=== PATIENT | male | born 1975 | race Caucasian/White ===

== ENCOUNTER 2024-07-17 12:37 | Inpatient (IN) | payer MEDICARE, BC, MEDICAID, SELFPAY ==
[2024-07-17] VITALS (8 sets, daily range): BP systolic 114–134; BP diastolic 57–71; PULSE 83–108; RESP 18–26; TEMP 36.3–39.1; O2SAT 88–98; BMI 39.9
--- NOTE | ~2024-07-17 | XR_ITS ---
EXAMINATION: XR CHEST CLINICAL INFORMATION: cough COMPARISON: None available. TECHNIQUE: 2 views of the chest were obtained. Mild rotation to the left. FINDINGS: Pleural-based opacities along the peripheral hemithoraces extending toward the apices likely related to pleural thickening versus effusions. No dominant consolidations appreciated. There is mild increased prominence of pulmonary vascularity with some peribronchial thickening observed. In addition there are interstitial perpendicular lines noted toward the right base. Findings suggestive of underlying mild pulmonary vascular congestion with possible small interstitial edema. XR/XR chest 2V IMPRESSION: Radiographic findings suspicious for underlying mild pulmonary vascular congestion with possible small interstitial edema peripherally projecting toward the right base. Pleural thickening versus effusions projecting at the lateral pleural surfaces and the apices. Electronically signed by: Fili Hdez MD 07/17/2024 01:57 PM [facility]
--- NOTE | 2024-07-17 12:50 | ED.GENADULT ---
HPI - General Adult General Chief complaint: Dyspnea Stated complaint: diff breathing cough Time Seen by Provider: 07/17/24 13:24 Source: patient and family Mode of arrival: ambulatory Limitations: no limitations History of Present Illness ED Provider: MELISSA POMPA narrative: 49 yo male with PMH of Down syndrome, hearing loss, no prior issues with lungs goes to a day program and on Sunday came home with cough, fevers, not feeling well. Today he felt hot and then also had N/V first episode of this after eating breakfast. He has not traveled. No known sick contacts. He has never smoked. He was at urgent care to get checked out and they noted he was 87% on RA, referred to the ED. Patient was given tylenol this AM by dad. Per family he has never had any cardiac disease or repair in his life. The only surgery he had was knee surgery. MD complaint: URI symptoms, dyspnea Onset (ago): day(s) (starting this past month) Location: chest Radiation: non-radiation Severity: moderate Relieving factors: rest Exacerbating factors: other (exertion) Associated symptoms: cough, loss of appetite, malaise, shortness of breath and weakness Treatments prior to arrival: other (tylenol) Related Data Allergies Allergy/AdvReac Type Severity Reaction Status Date / Time No Known Allergies Allergy Unverified 07/17/24 12:52 [No Known Allergies*] Review of Systems Review of Systems: Constitutional : pos Fever, pos Chills ENT/Mouth : No Hoarseness, No sore throat, No Rhinorrhea Eyes: No Redness, No Discharge, No Vision Changes Cardiovascular : No Chest Pain, positive SOB, positive Dyspnea on Exertion, No Edema Respiratory : positive Cough, pos Sputum, positive Wheezing, Gastrointestinal : No Nausea, No Vomiting, No Diarrhea, No abdominal Pain Genitourinary : No Dysuria, No Hematuria Musculoskeletal : No joint pain, No Myalgias Skin : No rash Neuro : No Weakness, No Numbness, No Headache Psych : No anxiety, depression All other systems reviewed and are negative [facility] Past Medical History Attestation statement: The following information was validated with the patient. Source: obtained from family Medical History Down syndrome Social History Social History (Updated 07/17/24 @ 13:48 by Sherlyn Gregg DO) Patient Tobacco Use Status: Never used Tobacco Advance Directives: No Advance Directives Information Provided: Yes Physical Exam ED Vital Signs: Vital Signs - 24 hr 07/17/24 12:50 07/17/24 13:34 07/17/24 13:34 Temperature 102.3 F H Pulse Rate 103 H 107 H Respiratory Rate 18 26 H Blood Pressure 114/71 Pulse Oximetry 90 L 88 L 94 Oxygen Delivery Method Room Air Room Air Nasal Cannula Oxygen Flow Rate 2 07/17/24 13:41 07/17/24 13:49 07/17/24 13:56 Temperature Pulse Rate 108 H 108 H 105 H Respiratory Rate 21 H 20 24 H Blood Pressure 134/66 Pulse Oximetry 92 Oxygen Delivery Method Nasal Cannula Oxygen Flow Rate 2 BMI result Body Mass Index 39.9 Appearance: Alert. Oriented X3. slighty labored mild acute distress. Eyes: Pupils equal, round and reactive to light. ENT: Pharynx normal. Neck: Normal inspection. Neck supple. CVS: tachycardic heart rate and rhythm. Pulses normal. Respiratory: Mild respiratory distress tachypnea Breath sounds coarse with diminished lung sounds RLL Abdomen: Soft and nontender. Skin: Skin warm and dry. Normal skin color. Normal skin turgor. Extremities: No lower extremity edema. No calf ttp Neuro: Oriented X 3. No motor deficit. No sensory deficit. Course Course Course Narrative: RME, this is a rapid medical exam performed by Dave Healy please refer to primary provider for complete H&P- 49-year-old male presents for evaluation of cough, vomiting, headache. He presents with his mother. He does have a history of developmental disability, he presents from urgent care. He was reportedly hypoxic to 87% on room air at urgent care. In triage was oxygen saturation is 91-92% plan for labs, chest x-ray, viral swabs. Patient medicated with Zofran ODT in triage. Patient noted to be febrile in triage, he received acetaminophen from family about an hour prior to arrival. Medications Administered Discontinued Medications Generic Name Dose Route Start Last Admin Trade Name Freq PRN Reason Stop Dose Admin Acetaminophen 975 mg 07/17/24 13:28 07/17/24 13:46 Acetaminophen 325 Mg Tablet PO 07/17/24 13:29 Not Given ONCE ONE Albuterol Sulfate 2.5 mg 07/17/24 13:50 07/17/24 13:55 Albuterol Sulfate (0.083%) 2.5 Mg/3 Ml Vial.Neb INHALE 07/17/24 13:51 2.5 mg ONCE ONE Administration Ceftriaxone Sodium 1 gm 07/17/24 13:24 07/17/24 13:43 Ceftriaxone Sodium 1 Gm Vial IVPUSH 07/17/24 13:25 1 gm ONCE ONE Administration Albuterol Sulfate 5 mg/ 0 mg 07/17/24 13:40 07/17/24 13:44 Albuterol/Ipratropium 3 ml INHALE 07/17/24 13:41 7.5 each ONCE ONE Administration Lactated Ringer's 1,000 mls @ 999 mls/hr 07/17/24 13:28 07/17/24 13:42 Lr IV 07/17/24 14:28 999 mls/hr .Q1H1M ONE Administration Ibuprofen 600 mg 07/17/24 13:46 07/17/24 13:53 Ibuprofen 600 Mg Tablet PO 07/17/24 13:47 600 mg ONCE ONE Administration Methylprednisolone Sodium Succinate 60 mg 07/17/24 13:24 07/17/24 13:42 Methylprednisolone Sod Succ 125 Mg/2 Ml Vial IVPUSH 07/17/24 13:25 60 mg ONCE ONE Administration Ondansetron HCl 4 mg 07/17/24 12:50 07/17/24 13:42 Ondansetron Odt 4 Mg Tab.Rapdis TRANSLINGU 07/17/24 12:51 4 mg ONCE ONE Administration Ondansetron HCl 4 mg 07/17/24 13:46 07/17/24 13:52 Ondansetron Odt 4 Mg Tab.Rapdis TRANSLINGU 07/17/24 13:47 Not Given ONCE ONE Ondansetron HCl 4 mg 07/17/24 13:52 07/17/24 13:53 Ondansetron Hcl 4 Mg/2 Ml Vial IVPUSH 07/17/24 13:53 4 mg ONCE ONE Administration Medical Decision Making Medical Decision Making MDM Narrative: 49 yo male with Down syndrome, hearing loss, here with c/o URI symptoms now with n/v today x 1, increased work of breathing and hypoxia on arrival. He has had a fever at this time suspect viral syndrome vs pneumonia. O2 2L NC ordered, labs, cultures, bronch protocol, IV steroids for wheezing noted, empiric ceftriaxone. Given O2 demands planned admit Differential Diagnosis Differential Diagnoses: The differential diagnosis associated with the presentation includes URI, pneumonia, hypoxia Admission/Observation Consideration of admission/observation: Escalation of care including admission/observation considered given hypoxia will admit 88-89% on RA Consult Healthcare Provider Management of the patient was discussed with: Hospitalist (will admit) Lab Data MDM Lab Attestation statement: I reviewed the patient's lab results. 07/17/24 13:41 07/17/24 13:41 Labs: Lab Results 07/17/24 07/17/24 Range/Units 13:41 13:42 WBC 11.5 H (4.8-10.8) X10*3/uL RBC 4.27 L (4.60-5.80) X10*6/uL Hgb 13.9 L (14.0-18.0) g/dl Hct 41.4 L (42.0-52.0) % MCV 97.0 (80.0-98.0) fL MCH 32.6 (27.0-33.0) pg MCHC 33.6 (31.0-36.0) g/dl RDW 14.4 (11.0-16.0) % Plt Count 250 (160-400) X10*3/uL MPV 10.7 (9.4-12.4) fL Immature Gran % (Auto) 0.3 (0.0-0.4) % Neut % (Auto) 85.0 H (45-73) % Lymph % (Auto) 7.4 L (20-40) % [place] % (Auto) 6.8 (2-11) % Eos % (Auto) 0.2 (0-4) % Baso % (Auto) 0.3 (0-2) % Lymph # (Auto) 0.9 L (1.2-4.9) X10*3/uL [place] # (Auto) 0.8 (0.1-1.2) X10*3/uL Eos # (Auto) 0.0 (0.0-0.4) X10*3/uL Baso # (Auto) 0.0 (0.0-0.2) X10*3/uL Abs Immat Gran (auto) 0.04 H (0.00-0.03) X10*3/uL Absolute Neuts (auto) 9.7 H (2.0-8.3) x10*3/uL Absolute Nucleated RBC 0.000 (0.0-0.012) X10*3/uL Nucleated RBC % (auto) 0.0 (0.0-0.2) /100WBC Sodium 139 (135-145) mmol/L Potassium 4.3 (3.3-5.1) mmol/L Chloride 105 (96-108) mmol/L Carbon Dioxide 27 (22-29) mmol/L Anion Gap 11 L (12-20) BUN 11 (9-16) mg/dL Creatinine 0.91 (0.5-1.4) mg/dL Estim Creat Clear Calc 95.1 Estimated GFR > 60 Random Glucose 193 H (60-115) mg/dL Lactic Acid 2.3 H* (0.5-2.0) mmol/L Calcium 9.0 (8.4-10.2) mg/dL Total Bilirubin 0.4 (0.0-1.0) mg/dL AST 32 (5-37) U/L ALT 48 H (0-40) U/L Alkaline Phosphatase 98 (39-117) U/L Troponin I High Sens < 2.7 (<3.5-35.0) ng/L Total Protein 7.4 (6.5-8.0) g/dL Albumin 3.6 (3.5-5.0) g/dL Lipase 7 L (8-78) U/L Influenza Type A (PCR) NEGATIVE (Negative) Influenza Type B (PCR) NEGATIVE (Negative) RSV RNA Qual (PCR) POSITIVE A (Negative) SARS-CoV-2 RNA (RT-PCR) NEGATIVE (Negative) S. pyogenes GrpA FAWAD Negative (Negative) Independent Interpretation I performed an independent interpretation of an: EKG and Plain X-Ray (RLL opacity) Interpretation: Rate: 106 Rhythm: sinus tach [place]: normal Normal P waves. Normal ABHISHEK. Normal QRS complex. ST T wave : normal no EVARISTO qTC: 441 prior studies: no acute ischemia The study has been interpreted contemporaneously by me. . Radiology Impression Discussion of test interpretation with radiology: I have reviewed the radiologist's reading. Independent Historian Clinical information obtained from an independent historian. History obtained from or confirmed by: Parent External Record Review External record reviewed: Outpatient record Critical Care Time Critical Care Time Critical Care Time: Yes Total Critical Care Time: 35 Attestation: hypoxia correction, discussions, admission, family discussion I attest to this time spent taking care of the patient Discharge Plan Discharge Clinical Impression: Hypoxia Pneumonia Qualifiers: Pneumonia type: due to unspecified organism Laterality: right Lung location: lower lobe of lung Qualified Code(s): J18.9 - Pneumonia, unspecified organism Fever Qualifiers: Fever type: unspecified Qualified Code(s): R50.9 - Fever, unspecified RSV infection Qualifiers: RSV infection type: unspecified Qualified Code(s): B33.8 - Other specified viral diseases Patient Disposition: Admitted As Inpatient Print Language: Syriac
[2024-07-17] MEDS: Ondansetron ODT 4 MG TAB.RAPDIS TRANSLINGU (13:42)
[2024-07-17] MEDS: Lactated Ringers 1,000 ML 999 ML IV (13:42)
[2024-07-17] MEDS: methylPREDNISolone Sod Succ 125 MG/2 ML VIAL 60 MG IVPUSH (13:42)
[2024-07-17] MEDS: cefTRIAXone sodium 1 GM VIAL IVPUSH (13:43)
[2024-07-17] MEDS: Albuterol Sulfate 5 MG, Albuterol/Iprat 2.5/0.5MG 3 ML 3 ML INHALE (13:44)
[2024-07-17 13:52] LABS: MANUAL DIFF FLAG NO
[2024-07-17] MEDS: Ibuprofen 600 MG TABLET PO (13:53)
[2024-07-17] MEDS: ondansetron HCL 4 MG/2 ML VIAL IVPUSH (13:53)
[2024-07-17] MEDS: Albuterol Sulfate (0.083%) 2.5 MG/3 ML VIAL.NEB INHALE (13:55)
--- NOTE | 2024-07-17 13:58 | ECG_ITS ---
Test Reason : DSYPNEA Blood Pressure : / mmHG Vent. Rate : 106 BPM Atrial Rate : 106 BPM P-R Int : 144 ms QRS Dur : 080 ms QT Int : 332 ms P-R-T Axes : 038 046 027 degrees QTc Int : 441 ms Sinus tachycardia Otherwise normal ECG No previous ECGs available Referred By: Sherlyn Gregg Electronically Signed By:NITO NELSON MD
[2024-07-17 14:02] LABS: Basophils Percent Auto 0.3 % (0-2); Eosinophils Percent Auto 0.2 % (0-4); Hematocrit 41.4 % (42.0-52.0); Hemoglobin 13.9 g/dl (14.0-18.0); Imm Gran Abs Auto 0.04 X10*3/uL (0.00-0.03); Imm Gran Pct Auto 0.3 % (0.0-0.4); Lymphocytes Absolute Auto 0.9 X10*3/uL (1.2-4.9); Lymphocytes Percent Auto 7.4 % (20-40); Mean Corpuscular HGB Conc 33.6 g/dl (31.0-36.0); Mean Corpuscular Hemoglobin 32.6 pg (27.0-33.0); Mean Platelet Volume 10.7 fL (9.4-12.4); Monocytes Absolute Auto 0.8 X10*3/uL (0.1-1.2); Monocytes Percent Auto 6.8 % (2-11); Neutrophils Absolute Auto 9.7 x10*3/uL (2.0-8.3); Platelet Count 250 X10*3/uL (160-400); Red Blood Count 4.27 X10*6/uL (4.60-5.80); Red Cell Distribution Width 14.4 % (11.0-16.0); White Blood Count 11.5 X10*3/uL (4.8-10.8)
[2024-07-17 14:09] LABS: Alanine Aminotransferase 48 U/L (0-40); Albumin Level 3.6 g/dL (3.5-5.0); Alkaline Phosphatase 98 U/L (39-117); Anion Gap 11 (12-20); Aspartate Amino Transferase 32 U/L (5-37); Bilirubin Total 0.4 mg/dL (0.0-1.0); Blood Urea Nitrogen 11 mg/dL (9-16); Carbon Dioxide 27 mmol/L (22-29); Chloride 105 mmol/L (96-108); Creatinine Clr Calc Pharmacy 95.1; Estimated Glomerular Filt Rate > 60; Glucose Random 193 mg/dL (60-115); Lipase 7 U/L (8-78); Potassium 4.3 mmol/L (3.3-5.1); Sodium 139 mmol/L (135-145); Total Protein 7.4 g/dL (6.5-8.0)
[2024-07-17 14:10] LABS: Lactic Acid 2.3 mmol/L (0.5-2.0)
[2024-07-17 14:13] LABS: IDNOW Serial# 58CA691E; Strep A Nucleic Acid Negative (Negative)
--- NOTE | 2024-07-17 14:13 | PC.NURSE ---
pt presents to the ED w/ parents after recently seen at urgent care. chief complaint of shortness of breath, cough, nausea, vomiting, fevers, chills. pt seen at urgent care and referred to ED when they noticed that he was 87% on RA. upon ED arrival - pt noted to be tachycardic on the pvc monitor - denies chest pain/palpitations. pt also noted to be 88% on RA - pt placed on 2L via NC w/ good effect - SPO2 @ 93%. sob/wob noted. pt positioned upright to promote patent airway. pt febrile - father administered Tylenol @ home. ibuprofen administered per provider order. effectiveness pending. 18gIV placed in the left AC - labs obtained/sent to lab. ekg performed by tech. pt received breathing tx via RT. medications/IVF administered per provider order. effectiveness pending. pt seen by ED provider. pt/family notified/aware of pt's status in regards to being admitted. plan of care ongoing. call matias placed within reach.
[2024-07-17 14:14] LABS: Troponin-I High Sensitivity < 2.7 ng/L (<3.5-35.0)
[2024-07-17 14:29] LABS: Influenza A PCR NEGATIVE (Negative); Influenza B PCR NEGATIVE (Negative); Resp Syncy Virus RNA Qual PCR POSITIVE (Negative); SARS COV2 PCR INHOUSE NEGATIVE (Negative)
[2024-07-17] MEDS: Azithromycin 500 MG in 0.9 % Sodium Chloride 250 ML 125 MG IV (14:45)
--- NOTE | 2024-07-17 15:08 | PM.IMHP ---
History of Present Illness Date of Service: 07/17/24 Chief Complaint: fever, cough The patient is a 49-year-old male with, hearing loss, hypothyroidism, hyperlipidemia and others who presents to the emergency room after being referred from urgent care for hypoxia on room air down to 87%. The patient's mother and father at bedside and history is obtained through their help. It appears that since Sunday of this week, 3 days prior to admission, he has been feeling unwell with fevers. There is also reports of productive cough and shortness of breath. He was taken to the urgent care today where he was noted to be hypoxic and has referred to the emergency room. In the ED, the patient was tachycardic tachypneic and febrile. His workup is positive for RSV. His chest x-ray is being read pulmonary vascular congestion as well as small interstitial edema projecting towards the right base. Clinically appears to be more an infiltrate, consistent with pneumonia. He has been treated with updrafts, IV Solu-Medrol, IV fluids, IV antibiotics, IV Zofran. He remained hypoxic below 90%, was placed on 2 L at admission has been requested. Review of Systems Review of Systems: Negative except HPI/interval history. [facility] Medical History Down syndrome Social History (Updated 07/17/24 @ 13:48 by Sherlyn Gregg DO) Household Members: Other Household Members Other:: pt has own room Housing Other:: shelter Do you presently have visiting nurse or other home services: No ([facility]) Patient Tobacco Use Status: Never used Tobacco Use of substances other than those prescribed or required for medical reasons: No Currently Displaying Signs/Symptoms of Drug Intoxication Withdrawal: No Have you been hit, kicked, punched, or otherwise hurt by someone within the past year? If so, by whom?: No Do you feel safe in your current relationship?: No Current Relationship Is there a partner from a previous relationship who is making you feel unsafe now?: No Are you made to feel afraid or neglected: No Advance Directives: No Advance Directives Information Provided: Yes Do you have a plan to hurt others: No Plan Recently lost weight without trying: No How much weight loss: 2-13 pounds Eating poorly because of decreased appetite: No Nutrition screen score: 1 Nutrition Risks: No Nutritional Risk Meds Allergies Allergy/AdvReac Type Severity Reaction Status Date / Time No Known Allergies Allergy Unverified 07/17/24 12:52 [No Known Allergies*] Active Medications: Current Medications Acetaminophen (Acetaminophen 325 Mg Tablet) 650 mg PO Q6H PRN PRN Reason: Pain, Mild 1-3,fever,headache Calcium Carbonate (Calcium Carbonate 750 Mg Tab.Chew) 750 mg PO Q4H PRN PRN Reason: Heartburn Ceftriaxone Sodium (Ceftriaxone Sodium 1 Gm Vial) 1 gm IVPUSH Q24H PASTOR Enoxaparin Sodium (Enoxaparin Sodium 40 Mg/0.4 Ml Syringe) 40 mg SUBCUT Q24H [facility] Azithromycin 500 mg/ Sodium (Chloride) 250 mls @ 125 mls/hr IV ONCE ONE Stop: 07/17/24 16:31 Last Admin: 07/17/24 14:45 Dose: 125 mls/hr Lactated Ringer's (Lr) 1,000 mls @ 100 mls/hr IVCONT .Q10H PASTOR Stop: 07/18/24 10:59 Azithromycin 500 mg/ Sodium (Chloride) 250 mls @ 125 mls/hr IV Q24H [facility] Magnesium Hydroxide (Milk Of Magnesia 30 Ml Oral.Susp) 30 ml PO DAILY PRN PRN Reason: Constipation Melatonin (Melatonin 3 Mg Tablet) 6 mg PO BEDTIME PRN PRN Reason: Insomnia Ondansetron HCl (Ondansetron Hcl 4 Mg/2 Ml Vial) 4 mg IVPUSH Q8H PRN PRN Reason: Nausea and Vomiting Sodium Chloride (0.9 % Sodium Chloride Flush 3 Ml Syringe) 3 ml IVFLUSH QSHIFT [facility] Home Medications ?Medication ?Instructions ?Recorded ?Confirmed ?Last Taken ?Type cyanocobalamin (vitamin B-12) 1,000 mcg PO DAILY 07/17/24 07/17/24 Unknown History 1,000 mcg tablet diclofenac sodium 1 % topical gel 2 g topical QID 07/17/24 07/17/24 Unknown History famotidine 20 mg tablet 20 mg PO BID@0700,1600 07/17/24 07/17/24 Unknown History fluticasone propionate 50 2 spray intranasal DAILY 07/17/24 07/17/24 Unknown History mcg/actuation nasal spray,suspension asfjziwkych-[id number]-ycy C-Mn 500 1 cap PO TID 07/17/24 07/17/24 Unknown History mg-400 mg capsule (Glucosamine Chondroitin Maximum Strength) levothyroxine 175 mcg tablet 175 mcg PO DAILY@0600 07/17/24 07/17/24 Unknown History olopatadine 0.1 % eye drops 1 drp ophthalmic (eye) DAILY 07/17/24 07/17/24 Unknown History pediatric multivit no. 58-ferrous 1 tab PO DAILY 07/17/24 07/17/24 Unknown History fumarate 18 mg iron chewable tablet (Child Complete Multivitamin) peg 400-propylene glycol (PF) 0.4 1 drp ophthalmic (eye) QID 07/17/24 07/17/24 Unknown History %-0.3 % eye drops in a dropperette (Systane (PF)) pravastatin 20 mg tablet 20 mg PO BEDTIME 07/17/24 07/17/24 Unknown History trazodone 100 mg tablet 100 mg PO BEDTIME 07/17/24 07/17/24 Unknown History venlafaxine 150 mg 300 mg PO DAILY 07/17/24 07/17/24 Unknown History capsule,extended release 24 hr Physical Exam Vital Signs and Narrative: Vital Signs: Last Vital Signs Temp 99.9 F 07/17/24 14:43 Pulse 104 H 07/17/24 14:43 Resp 18 07/17/24 14:43 BP 120/57 L 07/17/24 14:43 Pulse Ox 94 07/17/24 14:43 O2 Del Method Nasal Cannula 07/17/24 14:43 O2 Flow Rate 2 07/17/24 14:43 BMI result Body Mass Index 39.9 Const: Other: Constitutional - Awake and Alert, No apparent distress Eyes - PERRLA, EOMI Cardiovascular - S1S2, RRR, No edema Respiratory - coarse sounds globally, saturating low-mid 90s on 2L Gastrointestinal - NT / ND; +BS; No rebound or guarding - No CVA tenderness Extremities - no calf tenderness bilaterally, no swelling Musculoskeletal - Normal inspection, normal ROM Skin - Warm/Dry Neurological - awake and alert, no focal motor deficits Psychological - Appropriate affect Results Labs 07/17/24 13:41 07/17/24 13:41 Labs: Laboratory Results - last 24 hr 07/17/24 07/17/24 13:41 13:42 MCV 97.0 MCH 32.6 MCHC 33.6 RDW 14.4 Plt Count 250 MPV 10.7 Immature Gran % (Auto) 0.3 Neut % (Auto) 85.0 H Lymph % (Auto) 7.4 L [place] % (Auto) 6.8 Eos % (Auto) 0.2 Baso % (Auto) 0.3 Lymph # (Auto) 0.9 L [place] # (Auto) 0.8 Eos # (Auto) 0.0 Baso # (Auto) 0.0 Abs Immat Gran (auto) 0.04 H Absolute Neuts (auto) 9.7 H Absolute Nucleated RBC 0.000 Nucleated RBC % (auto) 0.0 Anion Gap 11 L Estim Creat Clear Calc 95.1 Estimated GFR > 60 Random Glucose 193 H Lactic Acid 2.3 H* Calcium 9.0 Total Bilirubin 0.4 AST 32 ALT 48 H Alkaline Phosphatase 98 Troponin I High Sens < 2.7 Total Protein 7.4 Albumin 3.6 Lipase 7 L Influenza Type A (PCR) NEGATIVE Influenza Type B (PCR) NEGATIVE RSV RNA Qual (PCR) POSITIVE A SARS-CoV-2 RNA (RT-PCR) NEGATIVE S. pyogenes GrpA FAWAD Negative Imaging Radiologist's Impressions: Impressions Chest X-Ray 07/17/24 13:25 IMPRESSION: Radiographic findings suspicious for underlying mild pulmonary vascular congestion with possible small interstitial edema peripherally projecting toward the right base. Pleural thickening versus effusions projecting at the lateral pleural surfaces and the apices. Electronically signed by: Fili Hdez MD 07/17/2024 01:57 PM [facility] Assessment and Plan (1) RSV infection: Qualifiers: RSV infection type: unspecified Qualified Code(s): B33.8 - Other specified viral diseases Status: Acute (2) Hypoxia: Status: Acute Plan 49 yo M with Down syndrome presenting with fevers, cough and found to have hypoxia. Imaging consistent with pneumonia. RSV positive. He will be admitted for further care. 1. Severe Sepsis and acute respiratory failure with hypoxia due to suspected bacterial pneumonia plus RSV Meets sepsis criteria with tachycardia, tachypnea, fevers. Severe features include elevated lactate. Sepsis focused exam completed We will treat with IV ceftriaxone and azithromycin Follow cultures Supportive care for his RSV Continue with supplemental oxygen with goal of 92 2. Hypothyroidism synthroid 3. Mood continue baseline meds Med rec is pending, will resume his baseline medications as appropriate. Full code DVT prophylaxis, Lovenox Patient with sepsis and respiratory failure due to pneumonia plus RSV, therefore expected to require at a minimum 2 midnights in the hospital for treatment and monitoring of response, and will be admitted as inpatient Quality Stroke Does the patient have a stroke diagnosis?: No VTE Prior VTE?: No VTE Risk Level:: Medical - moderate - high VTE Device Contraindication: N/A - Device Ordered VTE Drug Contraindication: N/A - Med Ordered
[2024-07-17 15:49] LABS: Reflex Lactate? Lactic Acid Added
[2024-07-17] MEDS: 0.9 % Sodium Chloride Flush 3 ML SYRINGE IVFLUSH ×2 (16:02→19:44)
[2024-07-17] MEDS: Enoxaparin Sodium 40 MG/0.4 ML SYRINGE SUBCUT (16:02)
--- NOTE | 2024-07-17 16:06 | PHA.MEDREC ---
Pharmacy Consult ? Medication Reconciliation Pharmacy has completed the medication reconciliation. Fax sent from [facility]
[2024-07-17 16:37] LABS: ~Lactic Acid-LAB USE ONLY 1.4 mmol/L (0.5-2.0)
[2024-07-17 17:15] LABS: Appearance Urine Clear; Color Urine Dark Yellow; Glucose Urine UA Negative (Negative); PH 8.5 (5.0-9.0); Urine Blood Negative (Negative)
[2024-07-17 17:16] LABS: Leukocyte Esterase Urine Trace (Negative); Nitrite Urine Negative (Negative); Specific Gravity - Urine >= 1.030 (1.005-1.025); UMIC TRIGGER UACC YES; Urine Ketones Trace mg/dL (Negative); Urine Protein 100 (2+) mg/dL (Neg-Trace)
[2024-07-17 17:18] LABS: Bacteria Urine None Seen (None Seen); Hyaline Casts Urine 0-2 /LPF (0-2); RBC Urine 0-2 /HPF (0-2); Squamous Epithelial Cell Urine 0-2 /HPF (0-2); WBC Urine 0-5 /HPF (0-5)
[2024-07-17] MEDS: traZODone HCL 100 MG TABLET PO (19:44)
[2024-07-17] MEDS: Pravastatin Sodium 20 MG TABLET PO (19:44)
[2024-07-18 04:00] VITALS: BP 114/58; PULSE 77; RESP 18; TEMP 36.2; O2SAT 90
--- NOTE | 2024-07-18 04:34 | PC.RT ---
pt own his own Bipap machine 05/02 on room air. added 3 l of 02 due to hypoxia with sats in low 80's. sats now up to 88%-94%. no resp distress noted
--- NOTE | 2024-07-18 04:58 | PC.NURSE ---
Addendum entered by Karin Gomez RN 07/18/24 06:35: Pt kept on desating on the low 80s while asleep with CPAP on, O2 via CPAP was titrated up to 5L/min, pt is calm and not in resp effort when awaken,O2 sats bounce up to low 90s when awake, Dr. Reilly was updated, no further orders made. Original Note: Pt noted asleep with CPAP on and desating on the high 70s, pt aroused with care, RT was called, put O2 at 2L/min via CPAP, pt put on cont pulse Ox, O2 sat went to low 90s.
[2024-07-18] MEDS: Famotidine 20 MG TABLET PO ×2 (05:38→15:59)
[2024-07-18] MEDS: Levothyroxine Sodium 175 MCG TABLET PO (05:38)
[2024-07-18 08:00] VITALS: BP 100/55; PULSE 65; RESP 18; TEMP 36.2; O2SAT 93
[2024-07-18 09:26] VITALS: O2SAT 92
[2024-07-18] MEDS: Cyanocobalamin (Vitamin B-12) 1,000 MCG TABLET 1000 MCG PO (09:27)
[2024-07-18] MEDS: Venlafaxine HCl ER 150 MG CAP.ER.24H 300 MG PO (09:27)
[2024-07-18] MEDS: 0.9 % Sodium Chloride Flush 3 ML SYRINGE IVFLUSH ×3 (09:27→21:22)
--- NOTE | 2024-07-18 11:15 | HO.PM.IMPN ---
Subjective Subjective Date of Service: 07/18/24 Interval History: seen and examined has his CPAP/BIPAP mask on reports no complaints this AM Review of Systems Negative except HPI/interval history. Physical Exam Vital Signs: Vital Signs: Last Vital Signs Temp 97.2 F 07/18/24 08:00 Pulse 65 07/18/24 08:00 Resp 18 07/18/24 08:00 BP 100/55 L 07/18/24 08:00 Pulse Ox 92 07/18/24 09:26 O2 Del Method Nasal Cannula 07/18/24 09:26 O2 Flow Rate 2 07/18/24 09:26 BMI result Body Mass Index 39.9 Const: Other: General - no acute distress, appears comfortable Cardiovascular - regular rate and rhythm, S1-S2 Lungs - diffuse rhonchi Abdomen - soft, nontender, no rebound or guarding Extremities - no edema bilaterally Neuro - awake and alert, no focal deficits Objective Data Active Medications Acetaminophen (Acetaminophen 325 Mg Tablet) 650 mg PO Q6H PRN PRN Reason: Pain, Mild 1-3,fever,headache Albuterol Sulfate (Albuterol Sulfate (0.042%) 1.25 Mg/3 Ml Vial.Neb) 1.25 mg INHALE RQ6H PRN PRN Reason: Shortness of Breath/Wheezing Calcium Carbonate (Calcium Carbonate 750 Mg Tab.Chew) 750 mg PO Q4H PRN PRN Reason: Heartburn Ceftriaxone Sodium (Ceftriaxone Sodium 1 Gm Vial) 1 gm IVPUSH Q24H COUNTS INCLUDE 234 BEDS AT THE [facility] Cyanocobalamin (Cyanocobalamin (Vitamin B-12) 1,000 Mcg Tablet) 1,000 mcg PO DAILY COUNTS INCLUDE 234 BEDS AT THE [facility] Last Admin: 07/18/24 09:27 Dose: 1,000 mcg Documented By: ALMAZ Enoxaparin Sodium (Enoxaparin Sodium 40 Mg/0.4 Ml Syringe) 40 mg SUBCUT Q24H COUNTS INCLUDE 234 BEDS AT THE [facility] Last Admin: 07/17/24 16:02 Dose: 40 mg Documented By: ELIE Famotidine (Famotidine 20 Mg Tablet) 20 mg PO BID@0700,1600 COUNTS INCLUDE 234 BEDS AT THE [facility] Last Admin: 07/18/24 05:38 Dose: 20 mg Documented By: MYNOR Azithromycin 500 mg/ Sodium (Chloride) 250 mls @ 125 mls/hr IV Q24H COUNTS INCLUDE 234 BEDS AT THE [facility] Levothyroxine Sodium (Levothyroxine Sodium 175 Mcg Tablet) 175 mcg PO DAILY@0600 COUNTS INCLUDE 234 BEDS AT THE [facility] Last Admin: 07/18/24 05:38 Dose: 175 mcg Documented By: MYNOR Magnesium Hydroxide (Milk Of Magnesia 30 Ml Oral.Susp) 30 ml PO DAILY PRN PRN Reason: Constipation Melatonin (Melatonin 3 Mg Tablet) 6 mg PO BEDTIME PRN PRN Reason: Insomnia Ondansetron HCl (Ondansetron Hcl 4 Mg/2 Ml Vial) 4 mg IVPUSH Q8H PRN PRN Reason: Nausea and Vomiting Pravastatin Sodium (Pravastatin Sodium 20 Mg Tablet) 20 mg PO BEDTIME COUNTS INCLUDE 234 BEDS AT THE [facility] Last Admin: 07/17/24 19:44 Dose: 20 mg Documented By: MYNOR Sodium Chloride (0.9 % Sodium Chloride Flush 3 Ml Syringe) 3 ml IVFLUSH QSHIFT COUNTS INCLUDE 234 BEDS AT THE [facility] Last Admin: 07/18/24 09:27 Dose: 3 ml Documented By: ALMAZ Trazodone HCl (Trazodone Hcl 100 Mg Tablet) 100 mg PO BEDTIME COUNTS INCLUDE 234 BEDS AT THE [facility] Last Admin: 07/17/24 19:44 Dose: 100 mg Documented By: MYNOR Venlafaxine HCl (Venlafaxine Hcl Er 150 Mg Cap.Er.24h) 300 mg PO DAILY COUNTS INCLUDE 234 BEDS AT THE [facility] Last Admin: 07/18/24 09:27 Dose: 300 mg Documented By: ALMAZ Labs 07/17/24 13:41 07/17/24 13:41 Labs: Laboratory Results - last 24 hr 07/17/24 07/17/24 07/17/24 13:41 13:42 16:16 MCV 97.0 MCH 32.6 MCHC 33.6 RDW 14.4 Plt Count 250 MPV 10.7 Immature Gran % (Auto) 0.3 Neut % (Auto) 85.0 H Lymph % (Auto) 7.4 L Love % (Auto) 6.8 Eos % (Auto) 0.2 Baso % (Auto) 0.3 Lymph # (Auto) 0.9 L Love # (Auto) 0.8 Eos # (Auto) 0.0 Baso # (Auto) 0.0 Abs Immat Gran (auto) 0.04 H Absolute Neuts (auto) 9.7 H Absolute Nucleated RBC 0.000 Nucleated RBC % (auto) 0.0 Anion Gap 11 L Estim Creat Clear Calc 95.1 Estimated GFR > 60 Random Glucose 193 H Lactic Acid 2.3 H* Lactic Acid F/U @ 2Hr 1.4 Calcium 9.0 Total Bilirubin 0.4 AST 32 ALT 48 H Alkaline Phosphatase 98 Troponin I High Sens < 2.7 Total Protein 7.4 Albumin 3.6 Lipase 7 L Urine Color Urine Appearance Urine pH Ur Specific [place] Urine Protein Urine Glucose (UA) Urine Ketones Urine Blood Urine Nitrite Ur Leukocyte Esterase Urine RBC Urine WBC Ur Squamous Epith Cells Urine Bacteria Hyaline Casts Influenza Type A (PCR) NEGATIVE Influenza Type B (PCR) NEGATIVE RSV RNA Qual (PCR) POSITIVE A SARS-CoV-2 RNA (RT-PCR) NEGATIVE S. pyogenes GrpA FAWAD Negative 07/17/24 17:06 MCV MCH MCHC RDW Plt Count MPV Immature Gran % (Auto) Neut % (Auto) Lymph % (Auto) Love % (Auto) Eos % (Auto) Baso % (Auto) Lymph # (Auto) Love # (Auto) Eos # (Auto) Baso # (Auto) Abs Immat Gran (auto) Absolute Neuts (auto) Absolute Nucleated RBC Nucleated RBC % (auto) Anion Gap Estim Creat Clear Calc Estimated GFR Random Glucose Lactic Acid Lactic Acid F/U @ 2Hr Calcium Total Bilirubin AST ALT Alkaline Phosphatase Troponin I High Sens Total Protein Albumin Lipase Urine Color Dark Yellow Urine Appearance Clear Urine pH 8.5 Ur Specific [place] >= 1.030 H Urine Protein 100 (2+) H Urine Glucose (UA) Negative Urine Ketones Trace Urine Blood Negative Urine Nitrite Negative Ur Leukocyte Esterase Trace H Urine RBC 0-2 Urine WBC 0-5 Ur Squamous Epith Cells 0-2 Urine Bacteria None Seen Hyaline Casts 0-2 Influenza Type A (PCR) Influenza Type B (PCR) RSV RNA Qual (PCR) SARS-CoV-2 RNA (RT-PCR) S. pyogenes GrpA FAWAD Assessment and Plan (1) RSV infection: Status: Acute (2) Hypoxia: Status: Acute Plan 49 yo M with Down syndrome presenting with fevers, cough and found to have hypoxia. Imaging consistent with pneumonia. RSV positive. He will be admitted for further care. 1. Severe Sepsis and acute respiratory failure with hypoxia due to suspected bacterial pneumonia plus RSV Meets sepsis criteria with tachycardia, tachypnea, fevers. Severe features include elevated lactate. Sepsis focused exam completed continue rocephin/zithromax day #2 will add iv solu-medrol and prn updrafts continue O2 repeat labs tomorrow 2. Hypothyroidism synthroid 3. Mood continue baseline meds 4. ? anthony on bipap at baseline, continue at night time Full code DVT prophylaxis, Lovenox reason for continued hospitalization: pt still desaturating and not weaned from o2, therefore, unable to transition to oral meds and discharge home Quality Stroke Does the patient have a stroke diagnosis?: No VTE Prior VTE?: No VTE Risk Level:: Medical - moderate - high VTE Device Contraindication: N/A - Device Ordered VTE Drug Contraindication: N/A - Med Ordered
[2024-07-18] MEDS: methylPREDNISolone Sod Succ 40 MG/ML VIAL IVPUSH ×2 (12:20→21:22)
[2024-07-18] MEDS: cefTRIAXone sodium 1 GM VIAL IVPUSH (14:02)
[2024-07-18] MEDS: Azithromycin 500 MG in 0.9 % Sodium Chloride 250 ML 125 MG IV (14:12)
[2024-07-18 15:54] VITALS: BP 107/56; PULSE 71; RESP 17; TEMP 36.7; O2SAT 92
[2024-07-18] MEDS: Enoxaparin Sodium 40 MG/0.4 ML SYRINGE SUBCUT (15:59)
[2024-07-18 19:20] VITALS: BP 119/59; PULSE 73; RESP 20; TEMP 36.6; O2SAT 95
[2024-07-18] MEDS: Pravastatin Sodium 20 MG TABLET PO (21:22)
[2024-07-18] MEDS: traZODone HCL 100 MG TABLET PO (21:22)
[2024-07-19 02:59] VITALS: BP 107/59; PULSE 64; RESP 18; TEMP 36.7; O2SAT 89
[2024-07-19] MEDS: Famotidine 20 MG TABLET PO ×2 (05:26→15:29)
[2024-07-19] MEDS: Levothyroxine Sodium 175 MCG TABLET PO (05:26)
[2024-07-19 06:54] LABS: Anion Gap 12 (12-20); Blood Urea Nitrogen 16 mg/dL (9-16); Calcium 8.6 mg/dL (8.4-10.2); Carbon Dioxide 30 mmol/L (22-29); Chloride 106 mmol/L (96-108); Creatinine Clr Calc Pharmacy 96.2; Estimated Glomerular Filt Rate > 60; Glucose Random 164 mg/dL (60-115); Potassium 4.5 mmol/L (3.3-5.1); Sodium 143 mmol/L (135-145)
[2024-07-19 06:57] LABS: Hematocrit 39.1 % (42.0-52.0); Hemoglobin 12.8 g/dl (14.0-18.0); Mean Corpuscular HGB Conc 32.7 g/dl (31.0-36.0); Mean Corpuscular Hemoglobin 32.3 pg (27.0-33.0); Mean Corpuscular Volume 98.7 fL (80.0-98.0); Mean Platelet Volume 11.1 fL (9.4-12.4); Platelet Count 287 X10*3/uL (160-400); Red Blood Count 3.96 X10*6/uL (4.60-5.80); Red Cell Distribution Width 14.6 % (11.0-16.0); White Blood Count 17.4 X10*3/uL (4.8-10.8)
[2024-07-19] MEDS: Venlafaxine HCl ER 150 MG CAP.ER.24H 300 MG PO (07:19)
[2024-07-19] MEDS: 0.9 % Sodium Chloride Flush 3 ML SYRINGE IVFLUSH ×3 (07:19→20:50)
[2024-07-19] MEDS: methylPREDNISolone Sod Succ 40 MG/ML VIAL IVPUSH ×2 (07:19→20:50)
[2024-07-19] MEDS: Cyanocobalamin (Vitamin B-12) 1,000 MCG TABLET 1000 MCG PO (07:20)
[2024-07-19 07:41] VITALS: BP 126/72; PULSE 67; RESP 18; TEMP 36.3; O2SAT 92
--- NOTE | 2024-07-19 10:33 | PC.NURSE ---
SAT down to 80% on RA ,oxygen placed back on, Dr. Reilly notified
--- NOTE | 2024-07-19 10:33 | MHC.CM.PN ---
CM SPOKE TO PTS MOTHER/GUARDIAN, NURYS [phone] WHO REPORTS PT LIVES IN A LONG-TERM AT [address] [place] [address] SHE SAYS HE USES A BIPAP FOR DME SHE AND HER ARE THE LEGAL GUARDIANS, SHE SAYS HE ALSO HAS A HCP, COPYS REQUESTED PCP: CATHY CRUZ IMM DELIVERED DCP: PT WILL BE DISCHARGING TO PARENTS HOME WHERE HE WILL BE STAYING FOR A WEEK OR SO PARENTS WILL TRANSPORT
[2024-07-19] MEDS: cefTRIAXone sodium 1 GM VIAL IVPUSH (13:51)
[2024-07-19] MEDS: Azithromycin 500 MG in 0.9 % Sodium Chloride 250 ML 125 MG IV (13:57)
[2024-07-19] MEDS: Enoxaparin Sodium 40 MG/0.4 ML SYRINGE SUBCUT (14:02)
--- NOTE | 2024-07-19 14:39 | P.PNIM_ITS ---
Subjective Subjective Date of Service: 07/19/24 Interval History: Seen and evaluated this morning feels better still drop O2 to 80s on RA no other events Review of Systems Review of Systems: Yes all other systems are reviewed and are negative Physical Exam 2 Vital Signs: Vital Signs: Last Vital Signs Temp 97.3 F 07/19/24 07:41 Pulse 67 07/19/24 07:41 Resp 18 07/19/24 07:41 BP 126/72 07/19/24 07:41 Pulse Ox 92 07/19/24 07:41 O2 Del Method CPAP 07/19/24 07:41 O2 Flow Rate 2 07/19/24 07:41 BMI result Body Mass Index 39.9 Const: Other: General - no acute distress, appears comfortable Cardiovascular - regular rate and rhythm, S1-S2 Lungs - diffuse rhonchi, on CPAP Abdomen - soft, nontender, no rebound or guarding Extremities - no edema bilaterally Neuro - awake and alert, no focal deficits Objective Data Active Medications Acetaminophen (Acetaminophen 325 Mg Tablet) 650 mg PO Q6H PRN PRN Reason: Pain, Mild 1-3,fever,headache Albuterol Sulfate (Albuterol Sulfate (0.042%) 1.25 Mg/3 Ml Vial.Neb) 1.25 mg INHALE RQ6H PRN PRN Reason: Shortness of Breath/Wheezing Calcium Carbonate (Calcium Carbonate 750 Mg Tab.Chew) 750 mg PO Q4H PRN PRN Reason: Heartburn Ceftriaxone Sodium (Ceftriaxone Sodium 1 Gm Vial) 1 gm IVPUSH Q24H [facility] Last Admin: 07/19/24 13:51 Dose: 1 gm Documented By: SHANNAN Cyanocobalamin (Cyanocobalamin (Vitamin B-12) 1,000 Mcg Tablet) 1,000 mcg PO DAILY [facility] Last Admin: 07/19/24 07:20 Dose: 1,000 mcg Documented By: SHANNAN Enoxaparin Sodium (Enoxaparin Sodium 40 Mg/0.4 Ml Syringe) 40 mg SUBCUT Q24H [facility] Last Admin: 07/19/24 14:02 Dose: 40 mg Documented By: SHANNAN Famotidine (Famotidine 20 Mg Tablet) 20 mg PO BID@0700,1600 [facility] Last Admin: 07/19/24 05:26 Dose: 20 mg Documented By: CASTILZahida Azithromycin 500 mg/ Sodium (Chloride) 250 mls @ 125 mls/hr IV Q24H [facility] Last Admin: 07/19/24 13:57 Dose: 125 mls/hr Documented By: SHANNAN Levothyroxine Sodium (Levothyroxine Sodium 175 Mcg Tablet) 175 mcg PO DAILY@0600 [facility] Last Admin: 07/19/24 05:26 Dose: 175 mcg Documented By: CASTILZahida Magnesium Hydroxide (Milk Of Magnesia 30 Ml Oral.Susp) 30 ml PO DAILY PRN PRN Reason: Constipation Melatonin (Melatonin 3 Mg Tablet) 6 mg PO BEDTIME PRN PRN Reason: Insomnia Methylprednisolone Sodium Succinate (Methylprednisolone Sod Succ 40 Mg/Ml Vial) 40 mg IVPUSH BID [facility] Last Admin: 07/19/24 07:19 Dose: 40 mg Documented By: SHANNAN Ondansetron HCl (Ondansetron Hcl 4 Mg/2 Ml Vial) 4 mg IVPUSH Q8H PRN PRN Reason: Nausea and Vomiting Pravastatin Sodium (Pravastatin Sodium 20 Mg Tablet) 20 mg PO BEDTIME [facility] Last Admin: 07/18/24 21:22 Dose: 20 mg Documented By: MYNOR Sodium Chloride (0.9 % Sodium Chloride Flush 3 Ml Syringe) 3 ml IVFLUSH QSHIFT [facility] Last Admin: 07/19/24 14:05 Dose: 3 ml Documented By: SHANNAN Trazodone HCl (Trazodone Hcl 100 Mg Tablet) 100 mg PO BEDTIME [facility] Last Admin: 07/18/24 21:22 Dose: 100 mg Documented By: MYNOR Venlafaxine HCl (Venlafaxine Hcl Er 150 Mg Cap.Er.24h) 300 mg PO DAILY [facility] Last Admin: 07/19/24 07:19 Dose: 300 mg Documented By: SHANNAN Labs 07/19/24 05:31 07/19/24 05:31 Labs: Laboratory Results - last 24 hr 07/19/24 05:31 MCV 98.7 H MCH 32.3 MCHC 32.7 RDW 14.6 Plt Count 287 MPV 11.1 Absolute Nucleated RBC 0.000 Nucleated RBC % (auto) 0.0 Anion Gap 12 Estim Creat Clear Calc 96.2 Estimated GFR > 60 Random Glucose 164 H Calcium 8.6 Microbiology Microbiology Results: Microbiology 07/17/24 13:41 Blood Culture - Preliminary Blood - Venous No growth after 24 hours. 07/17/24 13:41 Blood Culture - Preliminary Blood - Venous No growth after 24 hours. Assessment and Plan (1) RSV infection: Status: Acute (2) Hypoxia: Status: Acute (3) Pneumonia: Status: Acute (4) Severe sepsis: Status: Acute Plan 49 yo M with Down syndrome presenting with fevers, cough and found to have hypoxia. Imaging consistent with pneumonia. RSV positive. He will be admitted for further care. #Severe Sepsis and acute respiratory failure with hypoxia due to bacterial pneumonia plus RSV improving slowly continue rocephin/zithromax day #2 iv solu-medrol and prn updrafts continue O2 # Hypothyroidism synthroid # Mood continue baseline meds # Hx DOMINIK on bipap at baseline, continue at night time Full code DVT prophylaxis, Lovenox reason for continued hospitalization: pt still desaturating and not weaned from o2, therefore, unable to transition to oral meds and discharge home Quality Stroke Does the patient have a stroke diagnosis?: No VTE Prior VTE?: No VTE Risk Level:: Medical - moderate - high VTE Device Contraindication: N/A - Device Ordered VTE Drug Contraindication: N/A - Med Ordered
[2024-07-19 15:39] VITALS: BP 112/57; PULSE 79; RESP 20; TEMP 36.2; O2SAT 96
[2024-07-19 19:44] VITALS: BP 122/62; PULSE 79; RESP 18; TEMP 36.8; O2SAT 97
[2024-07-19] MEDS: traZODone HCL 100 MG TABLET PO (20:50)
[2024-07-19] MEDS: Pravastatin Sodium 20 MG TABLET PO (20:50)
[2024-07-20 02:47] VITALS: BP 121/71; PULSE 70; RESP 16; TEMP 36.1; O2SAT 96
[2024-07-20] MEDS: Famotidine 20 MG TABLET PO (05:35)
[2024-07-20] MEDS: Levothyroxine Sodium 175 MCG TABLET PO (05:35)
[2024-07-20] MEDS: Venlafaxine HCl ER 150 MG CAP.ER.24H 300 MG PO (07:16)
[2024-07-20] MEDS: methylPREDNISolone Sod Succ 40 MG/ML VIAL IVPUSH (07:16)
[2024-07-20] MEDS: 0.9 % Sodium Chloride Flush 3 ML SYRINGE IVFLUSH (07:16)
[2024-07-20] MEDS: Cyanocobalamin (Vitamin B-12) 1,000 MCG TABLET 1000 MCG PO (07:17)
[2024-07-20 08:00] VITALS: BP 123/83; PULSE 64; RESP 20; TEMP 36.3; O2SAT 97
--- NOTE | 2024-07-20 09:00 | PC.NURSE ---
SAT on RA between ,Dr. Reilly notified
[2024-07-20] MEDS: guaiFENesin LA 600 MG TAB.ER.12H PO (12:15)
--- NOTE | 2024-07-20 12:15 | MHC.CM.PN ---
CM MET WITH PT AND PARENTS AT BEDSIDE THEY REPORT THE PTS DETENTION IS AWARE THEY WILL BE TAKING PT TO THEIR HOME FOR THE WEEK THEY REQUEST THE PTS DCS AND A LETTER THAT HE MAY RETURN TO THE DAY PROGRAM ON 07/27/24 PARENTS WILL PROVIDE TRANSPORT
--- NOTE | 2024-07-20 12:19 | PM.DS ---
DS: Providers Provider Date of Service: 07/20/24 Date of admission: 07/17/24 15:03 Date of discharge: 07/20/24 Primary care physician: Karen Ruiz MD DS: Diagnosis Discharge Diagnosis (1) RSV infection: Status: Acute (2) Hypoxia: Status: Acute (3) Pneumonia: Status: Acute (4) Severe sepsis: Status: Acute (5) Pulmonary congestion: Status: Acute DS: Summary Hospital Course Hospital Course: Admission note HPI The patient is a 49-year-old male with, hearing loss, hypothyroidism, hyperlipidemia and others who presents to the emergency room after being referred from urgent care for hypoxia on room air down to 87%. The patient's mother and father at bedside and history is obtained through their help. It appears that since Sunday of this week, 3 days prior to admission, he has been feeling unwell with fevers. There is also reports of productive cough and shortness of breath. He was taken to the urgent care today where he was noted to be hypoxic and has referred to the emergency room. In the ED, the patient was tachycardic tachypneic and febrile. His workup is positive for RSV. His chest x-ray is being read pulmonary vascular congestion as well as small interstitial edema projecting towards the right base. Clinically appears to be more an infiltrate, consistent with pneumonia. He has been treated with updrafts, IV Solu-Medrol, IV fluids, IV antibiotics, IV Zofran. He remained hypoxic below 90%, was placed on 2 L at admission has been requested. Hospital course The patient was treated for Severe Sepsis and acute respiratory failure with hypoxia due to bacterial pneumonia plus RSV infection treated with IV steroids, IV Antibiotics of Azithromycin and Ceftin with improvement over the course of hospital stay as he was weaned off O2 and maintained O2 level mid 90s% on room air. His CXR also reports pulmonary congestion likely related to history of DOMINIK on CPAP and the current infeciton. will use short term Lasix of 20 mg for 3 days upon discharge with a plan to follow with PCP for further work up and management as needed as outpatient. Discharge plan Treated for RSV infection with overlying pneumonia with Steroids and antibiotics with good response. Continue Antibiotics and Prednisone for 5 more days Lasix for 3 more days to remove extra fluids Cough medicine Use Incentive spirometry to prevent pneumonia Follow with PCP as scheduled Time Attestation Discharge Coordination Time (in mins): 42 Quality: Safe Use of Opioids Does Pt have an Active Cancer Diagnosis on the Problem List?: No Quality: Stroke Does the patient have a stroke diagnosis?: No Physical Exam Vital Signs: Vital Signs: Last Vital Signs Temp 97.4 F 07/20/24 08:00 Pulse 64 07/20/24 08:00 Resp 20 07/20/24 08:00 BP 123/83 07/20/24 08:00 Pulse Ox 97 07/20/24 08:00 O2 Del Method CPAP 07/20/24 08:00 O2 Flow Rate 2 07/20/24 08:00 BMI result Body Mass Index 39.9 Const: Other: General - no acute distress, appears comfortable Cardiovascular - regular rate and rhythm, S1-S2 Lungs - good bilateral air entry, scattered bilateral rhonchi, on room air Abdomen - soft, nontender, no rebound or guarding Extremities - no edema bilaterally Neuro - awake and alert, no focal deficits DS: Data Data Completed and Pending Labs on day of discharge: Preliminary micro results at discharge 07/17/24 13:41 Blood Culture - Preliminary Blood - Venous No growth after 48 hours. 07/17/24 13:41 Blood Culture - Preliminary Blood - Venous No growth after 48 hours. Imaging Chest x-ray: Radiologist's impression: ITS Impressions Chest X-Ray 07/17/24 13:25 IMPRESSION: Radiographic findings suspicious for underlying mild pulmonary vascular congestion with possible small interstitial edema peripherally projecting toward the right base. Pleural thickening versus effusions projecting at the lateral pleural surfaces and the apices. Electronically signed by: Fili Hdez MD 07/17/2024 01:57 PM [facility] [place] Plan Discharge Anticipated Discharge Date/Time: 07/20/24 12:02 Patient Disposition: Home, Self-Care Discharge Diagnosis: Pneumonia RSV infection Referrals: Karen Ruiz MD [Primary Care Provider] - 1 Week Discharge Medications: New prednisone 20 mg tablet 40 mg PO DAILY Qty: 10 0RF guaifenesin 600 mg tablet extended release 12hr 600 mg PO BID Qty: 14 0RF azithromycin 500 mg tablet 500 mg PO DAILY 5 Days Qty: 5 0RF cefuroxime axetil 500 mg tablet 500 mg PO BID Qty: 10 0RF furosemide [Lasix] 20 mg tablet 20 mg PO Q OTHER DAY Qty: 3 0RF Continued levothyroxine 175 mcg tablet 175 mcg PO DAILY@0600 venlafaxine 150 mg capsule,extended release 24hr 300 mg PO DAILY famotidine 20 mg tablet 20 mg PO BID@0700,1600 trazodone 100 mg tablet 100 mg PO BEDTIME pravastatin 20 mg tablet 20 mg PO BEDTIME fluticasone propionate 50 mcg/actuation spray,suspension 2 spray intranasal DAILY diclofenac sodium 1 % gel 2 g topical QID cyanocobalamin (vitamin B-12) 1,000 mcg Tablet 1,000 mcg PO DAILY olopatadine 0.1 % Drops 1 drp OPHTHALMIC (EYE) DAILY Rx Instructions: separate doses by at least 6-8 hours [id number] C-Mn [Glucosamine Chondroitin MaxStr] 500-400 mg Capsule 1 cap PO TID Systane (PF) 0.4-0.3 % Dropperette 1 drp OPHTHALMIC (EYE) QID Child Complete Multivitamin 18 mg iron Tablet,Chewable 1 tab PO DAILY Discharge Orders: Discharge Order (Routine); Ordered 07/20/24 Ordered By: Brian Reilly Diet: Advance to usual diet Activity on Discharge: As tolerated Stand Alone Forms: Patient Portal Discharge page, Work/School Release Print Language: Kinyarwanda Care Plan Goals: Treated for RSV infection with overlying pneumonia with Steroids and antibiotics with good response. Continue Antibiotics and Prednisone for 5 more days Lasix for 3 more days to remove extra fluids Cough medicine Use Incentive spirometry to prevent pneumonia Follow with PCP as scheduled Health Concerns: RSV Infection Pneumonia Lung congestion Plan of Treatment: Antibiotics, Prednisone and lasix Assessment: as above
[2024-07-20 13:06] VITALS: BP 147/80
[2024-07-20] MEDS: Furosemide 20 MG TABLET PO (13:06)
== END 2024-07-20 13:50 | disposition home or self-care (01) | DRG 871 ==
LOC: HO.ED 14:21 → HO.EDOVER 15:21 → HO.S3 15:43
PROVIDERS: Physician Assistant; Admitting Provider Family Medicine; Emergency Provider Emergency Medicine; PCP Internal Medicine; Visit Provider Student in an Organized Health Care Education/Training Program
DX: A41.9 Sepsis, unspecified organism (principal); J15.9 Unspecified bacterial pneumonia; J96.01 Acute respiratory failure with hypoxia; F39 Unspecified mood [affective] disorder; G47.33 Obstructive sleep apnea (adult) (pediatric); Q90.9 Down syndrome, unspecified; B97.4 Respiratory syncytial virus as the cause of diseases classified elsewhere; R65.20 Severe sepsis without septic shock; E03.9 Hypothyroidism, unspecified; Z20.822 Contact with and (suspected) exposure to COVID-19; Z79.51 Long term (current) use of inhaled steroids; Z79.890 Hormone replacement therapy; Z79.899 Other long term (current) drug therapy
CPT/HCPCS: 0241U; 36415; 71046; 80048; 80053; 81001; 83605; 83690; 84484; 85025; 85027; 87040; 87651; 93005; 94640; 99285; J0456; J0696; J1650; J2405; J2919; J7120

== ENCOUNTER → 2024-07-17 13:58 | Outpatient (BNV) | payer MEDICARE, BC, MEDICAID, SELFPAY | PROVIDERS: Admitting Provider Family Medicine; Emergency Provider Emergency Medicine; PCP Internal Medicine; Visit Provider Internal Medicine Cardiovascular Disease | DX: R00.0 Tachycardia, unspecified (principal); R06.09 Other forms of dyspnea | CPT/HCPCS: 93010 ==

== ENCOUNTER → 2024-07-17 15:03 | Outpatient (BNV) | payer MEDICARE, BC, MEDICAID, SELFPAY | PROVIDERS: Admitting Provider Family Medicine; Emergency Provider Emergency Medicine; PCP Internal Medicine; Visit Provider Family Medicine | DX: B33.8 Other specified viral diseases (principal); J96.01 Acute respiratory failure with hypoxia; J18.9 Pneumonia, unspecified organism; A41.9 Sepsis, unspecified organism; R65.20 Severe sepsis without septic shock | CPT/HCPCS: 99223; 99232 ==